=== PATIENT | female | born 1980 | race Caucasian/White ===

== ENCOUNTER 2019-04-27 16:43 | Inpatient (IN) | payer BC ==
[~2019-04-27 16:43] MED LIST: Bupivacaine HCl 0.5%/Epinephrine 1:200,000/PF 30 ml Vial ONE; Bupivacaine/Epinephrine 0.25% 30 ML VIAL ONE; Lidocaine 2% MPF 10 ML AMP (For Epidural Use) ONE
[2019-04-27 17:26] VITALS: BMI 41.2
[2019-04-27 17:35] LABS: Amnisure Internal Control QC ACCEPTABLE (ACCEPTABLE); Amnisure Test RUPTURE DETECTED (No Rupture)
[2019-04-27] MEDS ORDERED: Acetaminophen 500 MG TAB PO PRN (17:48)
[2019-04-27] MEDS ORDERED: Misoprostol 200 MCG TAB PR PRN (17:48)
[2019-04-27] MEDS ORDERED: Ondansetron PF 4 MG/2 ML Vial IVP PRN (17:48)
[2019-04-27] MEDS ORDERED: Acetaminophen/Codeine 30-300mg Tablet PO PRN ×2 (17:48)
[2019-04-27] MEDS ORDERED: NS / Oxytocin 40 units/1000ml 1,000 ML IV PRN (17:48)
[2019-04-27] MEDS ORDERED: hydrALAZINE 20 MG/ML VIAL SLOW IVP PRN (17:48)
[2019-04-27] MEDS ORDERED: Meperidine HCl/PF 25 MG/ML VIAL IM/IV PRN (17:48)
[2019-04-27] MEDS ORDERED: Zolpidem Tartrate 5 MG TAB PO PRN (17:48)
[2019-04-27] MEDS ORDERED: Promethazine HCl 25 MG/ML VIAL IM PRN (17:48)
[2019-04-27] MEDS ORDERED: Lidocaine 1% (PF) 30 ML VIAL SC PRN (17:48)
[2019-04-27] MEDS ORDERED: Butorphanol Tartrate 1 MG/ML VIAL SLOW IVP PRN (17:48)
[2019-04-27] MEDS ORDERED: Ibuprofen 800 MG TAB PO PRN (17:48)
[2019-04-27] MEDS ORDERED: NS w/ Oxytocin 10 units 500 ML IV SCH (18:00)
[2019-04-27] MEDS ORDERED: Lactated Ringer's 1,000 ML IV SCH (18:00)
[2019-04-27] MEDS: Lactated Ringer's 1,000 ML IV SCH ×2 (19:48→23:53)
[2019-04-27] MEDS ORDERED: Fentanyl 4 mcg/Bup 0.1% Cadd 100 ML ONE (19:55)
[2019-04-27 20:03] LABS: Hemoglobin 12.9 g/dL (12.0-16.0); Mean Corpuscular HGB CONC 33.8 g/dL (32.0-36.0); Mean Corpuscular Hemoglobin 29.8 pg (27.0-31.0); Mean Corpuscular Volume 88.4 fL (78.0-98.0); Mean Platelet Volume 8.6 fL (7.4-10.4); Platelet Count 264 thou/uL (130-400); RBC Distribution Width 11.5 % (11.5-14.5); Red Blood Cell (RBC) Count 4.32 mill/uL (4.20-5.40); White Blood Cell (WBC) Count 15.3 thou/uL (4.8-10.8)
[2019-04-27 20:42] LABS: Syphilis Antibody Nonreactive (Nonreactive); Syphilis Antibody Index 0.04 S/CO (<1.00 Non-Reactive)
[2019-04-27 22:28] LABS: HBSAg Index 0.24 S/CO (0-0.99); Hep B Surf Ag Non-Reactive S/CO (NonReactive)
[2019-04-28] MEDS ORDERED: ePHEDrine/0.9% NaCl/PF SYRINGE 50 mg/10 ml SLOW IVP PRN (00:51)
[2019-04-28] MEDS ORDERED: diphenhydrAMINE 50 MG/ML VIAL IVP PRN (00:51)
[2019-04-28] MEDS ORDERED: Promethazine HCl 25 MG/ML VIAL IM PRN (00:51)
[2019-04-28] MEDS ORDERED: Lactated Ringer's 500 ML IV PRN (00:51)
[2019-04-28] MEDS ORDERED: Acetaminophen 325 MG TAB PO PRN (00:51)
[2019-04-28] MEDS ORDERED: Ondansetron PF 4 MG/2 ML Vial IVP PRN ×2 (00:51→04:01)
[2019-04-28] MEDS ORDERED: Naloxone HCl 0.4 mg/ml Vial IVP PRN ×2 (00:51)
[2019-04-28] MEDS ORDERED: Fentanyl 4 mcg/Bupivacaine 0.1% Cassette 100 ML EPIDURAL SCH (01:00)
[2019-04-28] MEDS ORDERED: Communication Order-Pharmacy FS SCH (01:00)
[2019-04-28] MEDS ORDERED: NS / Oxytocin 40 units/1000ml 1,000 ML ONE (03:56)
[2019-04-28] MEDS ORDERED: Benzocaine-Menthol 82.5 ML CAN TOP PRN (04:01)
[2019-04-28] MEDS ORDERED: Acetaminophen/Codeine 30-300mg Tablet PO PRN ×2 (04:01)
[2019-04-28] MEDS ORDERED: Bisacodyl 10 MG SUPP PR PRN (04:01)
[2019-04-28] MEDS ORDERED: diphenhydrAMINE 25 MG CAP PO PRN (04:01)
[2019-04-28] MEDS ORDERED: hydrALAZINE 20 MG/ML VIAL SLOW IVP PRN (04:01)
[2019-04-28] MEDS ORDERED: Milk Of Magnesia 30 ML UDCUP PO PRN (04:01)
[2019-04-28] MEDS ORDERED: Misoprostol 200 MCG TAB VAG PRN (04:01)
[2019-04-28] MEDS ORDERED: Lanolin Ointment 7 GM TUBE TOP PRN (04:01)
[2019-04-28] MEDS ORDERED: Zolpidem Tartrate 5 MG TAB PO PRN (04:01)
[2019-04-28] MEDS ORDERED: NS / Oxytocin 40 units/1000ml 1,000 ML IV SCH (04:15)
[2019-04-28] MEDS: Ibuprofen 800 MG TAB PO SCH ×3 (08:49→23:21)
[2019-04-28] MEDS: Docusate Calcium (SURFAK) 240 MG CAP PO SCH ×2 (08:49→21:06)
[2019-04-28] MEDS ORDERED: Adacel (T-DAP) 0.5 ML SYRINGE IM ONE (09:00)
[2019-04-28] MEDS: Ferrous Sulfate 325 MG TAB PO SCH ×2 (13:52→17:07)
[2019-04-28] MEDS: Prenatal Vitamin 1 TAB PO SCH (13:53)
[2019-04-29] MEDS: Ibuprofen 800 MG TAB PO SCH ×2 (06:15→13:18)
[2019-04-29] MEDS: Ferrous Sulfate 325 MG TAB PO SCH ×2 (08:38→17:21)
[2019-04-29] MEDS: Prenatal Vitamin 1 TAB PO SCH (08:39)
[2019-04-29] MEDS: Docusate Calcium (SURFAK) 240 MG CAP PO SCH (08:39)
[2019-04-29] MEDS ORDERED: Sodium Chloride 0.9% 10 ML ONE ×2 (13:14→14:43)
[2019-04-29 15:25] VITALS: BP 121/65; TEMP 98.3
== END 2019-04-29 19:20 | disposition home or self-care (01) | DRG 806 ==
LOC: L&D/OP 16:43 → L&D 20:16 → 3SW 04-28 05:50
PROVIDERS: ADMIT Obstetrics & Gynecology; ATTEND Obstetrics & Gynecology
PROC: 10E0XZZ Delivery of Products of Conception, External Approach (ICD-10-PCS; principal; 2019-04-27)
PROC: 0HQ9XZZ Repair Perineum Skin, External Approach (ICD-10-PCS; 2019-04-27)
DX: O99.12 Other diseases of the blood and blood-forming organs and certain disorders involving the immune mechanism complicating childbirth (principal); D68.51 Activated protein C resistance; Z37.0 Single live birth; D68.59 Other primary thrombophilia; O70.0 First degree perineal laceration during delivery; Z3A.37 37 weeks gestation of pregnancy
CPT/HCPCS: 36415; 51702; 84112; 85027; 85461; 86780; 86850; 86870; 86900; 86901; 87340; 90384; 96372; 99285; J0670; J2001; J2405; J2590

== ENCOUNTER 2021-10-10 10:28 | Outpatient (CLI) | payer BC | END 2021-10-10 10:29 | disposition home or self-care (01) | LOC: BICMAMMO 10:28 | PROVIDERS: ATTEND Internal Medicine | DX: Z12.31 Encounter for screening mammogram for malignant neoplasm of breast (principal); Z80.3 Family history of malignant neoplasm of breast; Z98.82 Breast implant status | CPT/HCPCS: 77063; 77067 ==

== ENCOUNTER 2022-10-16 12:08 | Outpatient (CLI) | payer OTHER | END 2022-10-16 12:09 | disposition home or self-care (01) | LOC: BICMAMMO 12:08 | PROVIDERS: ATTEND Internal Medicine | DX: Z12.31 Encounter for screening mammogram for malignant neoplasm of breast (principal); Z98.82 Breast implant status; Z80.3 Family history of malignant neoplasm of breast | CPT/HCPCS: 77063; 77067 ==

== ENCOUNTER 2024-03-07 11:37 | Outpatient (CLI) | payer OTHER | END 2024-03-07 11:38 | disposition home or self-care (01) | LOC: BICMAMMO 11:37 | PROVIDERS: ATTEND Obstetrics & Gynecology | DX: Z12.31 Encounter for screening mammogram for malignant neoplasm of breast (principal); Z80.3 Family history of malignant neoplasm of breast; Z98.82 Breast implant status | CPT/HCPCS: 77063; 77067 ==